=== PATIENT | female | born 1970 | race Caucasian/White ===

== ENCOUNTER 2022-09-14 10:44 | Outpatient (REF) | payer OTHER, SELFPAY ==
[2022-09-14 11:47] LABS: MANUAL DIFF FLAG NO
[2022-09-14 13:25] LABS: Basophils Absolute Auto 0.1 X10*3/uL (0.0-0.2); Basophils Percent Auto 0.9 % (0-2); Eosinophils Percent Auto 0.4 % (0-4); Hematocrit 38.2 % (37.0-47.0); Hemoglobin 12.2 g/dl (12.0-16.0); Imm Gran Abs Auto 0.03 X10*3/uL (0.00-0.03); Imm Gran Pct Auto 0.3 % (0.0-0.4); Lymphocytes Absolute Auto 2.1 X10*3/uL (1.2-4.9); Lymphocytes Percent Auto 21.2 % (20-40); Mean Corpuscular HGB Conc 31.9 g/dl (31.0-35.0); Mean Corpuscular Hemoglobin 28.8 pg (27.0-33.0); Mean Corpuscular Volume 90.1 fL (80.0-98.0); Monocytes Absolute Auto 0.8 X10*3/uL (0.1-1.2); Monocytes Percent Auto 7.7 % (2-11); Neutrophils Absolute Auto 6.9 x10*3/uL (2.0-8.3); Neutrophils Percent Auto 69.5 % (45-73); Platelet Count 272 X10*3/uL (160-400); Red Blood Count 4.24 X10*6/uL (4.20-5.50); Red Cell Distribution Width 13.5 % (11.0-16.0); White Blood Count 9.9 X10*3/uL (4.8-10.8)
[2022-09-14 13:57] LABS: Estimated Average Glucose 114 mg/dL; Hemoglobin A1c % 5.6 %
[2022-09-14 14:20] LABS: Alanine Aminotransferase 18 U/L (0-31); Albumin Level 4.2 g/dL (3.5-5.0); Alkaline Phosphatase 104 U/L (39-117); Anion Gap 12 (12-20); Aspartate Amino Transferase 20 U/L (5-31); Bilirubin Total 0.3 mg/dL (0.0-1.0); Blood Urea Nitrogen 18 mg/dL (9-16); Calcium 10.1 mg/dL (8.4-10.2); Carbon Dioxide 27 mmol/L (22-29); Chloride 103 mmol/L (96-108); Estimated Glomerular Filt Rate > 60; Glucose Random 95 mg/dL (60-115); Potassium 4.3 mmol/L (3.3-5.1); Sodium 138 mmol/L (135-145); Total Protein 7.8 g/dL (6.5-8.0)
== END 2022-09-14 10:45 | disposition home or self-care (01) ==
LOC: HO.LAB 10:44
PROVIDERS: PCP Family Medicine; Visit Provider Surgery
DX: E66.01 Morbid (severe) obesity due to excess calories (principal); Z68.36 Body mass index [BMI] 36.0-36.9, adult; Z98.84 Bariatric surgery status
CPT/HCPCS: 36415; 80053; 83036; 84134; 85025

== ENCOUNTER → 2022-09-28 14:11 | Outpatient (BNVA) | payer OTHER, SELFPAY | PROVIDERS: PCP Family Medicine; Visit Provider Dietitian, Registered | DX: E66.9 Obesity, unspecified (principal); Z68.36 Body mass index [BMI] 36.0-36.9, adult; Z71.3 Dietary counseling and surveillance | CPT/HCPCS: 97802 ==

== ENCOUNTER 2022-10-19 10:24 | Outpatient (REF) | payer OTHER, SELFPAY ==
--- NOTE | ~2022-10-19 | US_ITS ---
EXAMINATION: US COMPLETE ABDOMEN WITH LIVER ELASTOGRAPHY CLINICAL INFORMATION: Obesity COMPARISON: None available. TECHNIQUE: Real-time imaging of the abdominal viscera. Noninvasive ultrasound liver fibrosis assessment is performed using Petra ElastPQ point quantification shear wave elastography (2D-SWE) with a C5-2 MHz transducer. Multiple elastography samples are obtained. FINDINGS: PANCREAS: Normal. ABDOMINAL AORTA: The proximal, middle, and distal aortic segments are normal in caliber. INFERIOR VENA CAVA: Visualized portions are normal. LIVER: Echogenic liver probably representing fatty infiltration. Hypoechoic area in the left lobe measuring 1 cm. Is uncertain whether this represents a liver lesion or area of focal fatty sparing. No other focal lesion or intrahepatic biliary duct dilatation. The right lobe measures 14 cm in length. The left lobe measures 11.6 cm in length. Portal flow is normal/hepatopedal Shear wave liver elastography median stiffness is 1.4 m/s (reference: normal median stiffness is 1.3 m/s or less). IQR/median stiffness to assess sampling precision is 0.13 (reference: good quality data set is IQR/median stiffness of 0.15 or less). GALLBLADDER: Surgically removed COMMON BILE DUCT: Normal in caliber measuring 0.5 cm in diameter. RIGHT KIDNEY: Not well visualized. No renal stone, mass or hydronephrosis. The right kidney measures 8.2 cm in length.. LEFT KIDNEY: Normal. No hydronephrosis. No renal calculi or focal parenchymal lesions. The kidney measures 10 cm in maximum dimension. SPLEEN: Normal. The spleen measures 11 cm in maximum dimension. FREE FLUID: None. US/US abdomen comp w elastography IMPRESSION: 1. Impression: Echogenic liver probably representing fatty infiltration. 1 cm hypoechoic area in the left lobe of the liver , question representing areas of focal fatty sparing. This could be further evaluated with liver MRI if clinically indicated. 2. Liver elastography: Adequate liver sampling. In the absence of other known clinical signs, rules out compensated advanced chronic liver disease. REFERENCE: Society of Radiologists in Ultrasound Liver Stiffness Thresholds (2020): LIVER STIFFNESS THRESHOLDS: *Liver Stiffness equal or less than 1.3 m/s: High probability of being normal. *Liver Stiffness less than 1.7 m/s: In the absence of other known clinical signs, rules out compensated advanced chronic liver disease. *Liver Stiffness 1.7-2.1 m/s: Suggestive of compensated advanced chronic liver disease but need further test for confirmation. *Liver Stiffness over 2.1 m/s: Rules in compensated advanced chronic liver disease. *Liver Stiffness over 2.4 m/s: Suggestive of clinically significant portal hypertension. QUALITY OF DATA SET: *IQR/Median value equal or less than 0.15 implies a quality data set. *IQR/Median value over 0.15 implies a poor quality data set. SIGNIFICANT CHANGE FROM PRIOR EXAM: Significant change if liver stiffness measurement is 10% or greater from prior exam. OTHER CONSIDERATIONS: The stage of liver fibrosis may be overestimated in the setting of acute hepatitis, liver inflammation, elevated liver function tests, hepatic vascular congestion, obstructive cholestasis, non-fasting state, and infiltrative diseases such as amyloidosis and lymphoma. In some patients with NAFLD, the liver stiffness thresholds for compensated advanced chronic liver disease may be lower. In causes other than viral hepatitis and NAFLD, liver stiffness thresholds are not well established.
== END 2022-10-19 10:25 | disposition home or self-care (01) ==
LOC: HO.US 10:24
PROVIDERS: Visit Provider Surgery
DX: E23.6 Other disorders of pituitary gland (principal); Z98.84 Bariatric surgery status
CPT/HCPCS: 76705; 76981

== ENCOUNTER 2022-10-25 10:34 | Outpatient (AMB) | payer OTHER, SELFPAY ==
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
[2022-10-25 11:13] VITALS: BP 112/71; PULSE 77; BMI 37.4
== END 2022-10-25 12:02 | disposition home or self-care (01) ==
PROVIDERS: PCP Family Medicine; Visit Provider Surgery
DX: E66.01 Morbid (severe) obesity due to excess calories (principal); Z98.84 Bariatric surgery status; Z68.36 Body mass index [BMI] 36.0-36.9, adult; K76.0 Fatty (change of) liver, not elsewhere classified; R93.5 Abnormal findings on diagnostic imaging of other abdominal regions, including retroperitoneum
CPT/HCPCS: 99214

== ENCOUNTER → 2022-10-25 10:34 | Outpatient (BNVA) | payer OTHER, SELFPAY | PROVIDERS: PCP Family Medicine; Visit Provider Surgery | DX: Z68.36 Body mass index [BMI] 36.0-36.9, adult (principal); E66.01 Morbid (severe) obesity due to excess calories; Z98.84 Bariatric surgery status; E23.6 Other disorders of pituitary gland ==

== ENCOUNTER 2022-11-01 15:58 | Outpatient (REF) | payer OTHER, SELFPAY ==
--- NOTE | ~2022-11-01 | MR_ITS ---
EXAMINATION: MRI ABDOMEN WITH AND WITHOUT CONTRAST CLINICAL INFORMATION: R16.0 - Hepatomegaly, not elsewhere classified COMPARISON: 10/19/2022 TECHNIQUE: Multiple routine MRI sequences through the abdomen were obtained on a high-field 1.5Tesla MRI. Pre-and postcontrast images with 10 mL of Gadavist intravenous contrast were obtained. This included a dynamic contrast-enhanced technique. FINDINGS: Lung bases: The visualized lung bases are unremarkable. Liver: There is mild signal loss and out of phase imaging consistent with mild diffuse fatty infiltration. On the prior ultrasound there is a subtle hypoechoic region seen along the posterior left lobe the liver I do not appreciate any suspicious lesion or enhancement in this location. There is a focal wedge-shaped region of focal fatty sparing along the posterior aspect of the left lobe the liver best appreciated on out of phase series 6 image 13/34. This area of focal fatty sparing likely explains the appearance on the recent ultrasound. No suspicious lesions noted. Gallbladder: Surgically absent Pancreas: Pancreas is homogeneous in signal. No pancreatic ductal dilatation or obstruction. No peripancreatic inflammatory changes or fluid. Spleen: Unremarkable Adrenals: Unremarkable Kidneys: Kidneys are normal in size, shape, and signal. No suspicious renal mass lesion seen. No hydronephrosis or perinephric edema. Other: Lap band noted MR/MR abdomen wo/w con IMPRESSION: There is mild diffuse fatty infiltration of the liver. There is a focal wedge-shaped region of focal fatty sparing along the posterior aspect of the left lobe the liver which likely corresponds to the subtle abnormality seen on recent ultrasound. I do not appreciate any suspicious hepatic lesions.
== END 2022-11-01 15:59 | disposition home or self-care (01) ==
LOC: HO.MRI 15:58
PROVIDERS: Visit Provider Surgery
DX: R16.0 Hepatomegaly, not elsewhere classified (principal)
CPT/HCPCS: 74183; A9585

== ENCOUNTER 2022-11-07 10:30 | Outpatient (AMB) | payer OTHER, SELFPAY ==
[2022-11-07 10:32] VITALS: BP 126/87; TEMP 36.6; O2SAT 97; BMI 36.9
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
== END 2022-11-07 11:27 | disposition home or self-care (01) ==
PROVIDERS: PCP Family Medicine; Visit Provider Surgery
DX: R93.5 Abnormal findings on diagnostic imaging of other abdominal regions, including retroperitoneum (principal); K76.0 Fatty (change of) liver, not elsewhere classified; Z68.36 Body mass index [BMI] 36.0-36.9, adult; E23.6 Other disorders of pituitary gland; E66.01 Morbid (severe) obesity due to excess calories; Z98.84 Bariatric surgery status
CPT/HCPCS: 99214

== ENCOUNTER → 2022-11-07 10:30 | Outpatient (BNVA) | payer OTHER, SELFPAY | PROVIDERS: PCP Family Medicine; Visit Provider Surgery | DX: E66.01 Morbid (severe) obesity due to excess calories (principal); R13.10 Dysphagia, unspecified; R93.5 Abnormal findings on diagnostic imaging of other abdominal regions, including retroperitoneum; K76.0 Fatty (change of) liver, not elsewhere classified; R00.0 Tachycardia, unspecified; Z68.36 Body mass index [BMI] 36.0-36.9, adult; Z98.84 Bariatric surgery status | CPT/HCPCS: 99212 ==

== ENCOUNTER 2022-12-02 10:46 | Outpatient (AMB) | payer OTHER, SELFPAY ==
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
[2022-12-02 11:00] VITALS: BP 125/60; PULSE 78; TEMP 36.4; O2SAT 97; BMI 35.4
== END 2022-12-02 11:56 | disposition home or self-care (01) ==
PROVIDERS: PCP Family Medicine; Visit Provider Surgery
DX: K76.0 Fatty (change of) liver, not elsewhere classified (principal); R93.5 Abnormal findings on diagnostic imaging of other abdominal regions, including retroperitoneum; E66.01 Morbid (severe) obesity due to excess calories; Z68.36 Body mass index [BMI] 36.0-36.9, adult; Z98.84 Bariatric surgery status
CPT/HCPCS: 99214

== ENCOUNTER → 2022-12-02 10:46 | Outpatient (BNVA) | payer OTHER, SELFPAY | PROVIDERS: PCP Family Medicine; Visit Provider Surgery | DX: E66.01 Morbid (severe) obesity due to excess calories (principal); Z68.36 Body mass index [BMI] 36.0-36.9, adult; E23.6 Other disorders of pituitary gland; K76.0 Fatty (change of) liver, not elsewhere classified; R93.5 Abnormal findings on diagnostic imaging of other abdominal regions, including retroperitoneum; Z98.84 Bariatric surgery status | CPT/HCPCS: 99212 ==

== ENCOUNTER 2022-12-20 11:04 | Outpatient (AMB) | payer OTHER, SELFPAY ==
[2022-12-20 11:13] VITALS: BP 134/69; PULSE 80; TEMP 36.1; O2SAT 99; BMI 32.7
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
== END 2022-12-20 13:05 | disposition home or self-care (01) ==
PROVIDERS: PCP Family Medicine; Visit Provider Surgery
DX: R13.10 Dysphagia, unspecified (principal); Z98.84 Bariatric surgery status; R93.5 Abnormal findings on diagnostic imaging of other abdominal regions, including retroperitoneum; K76.0 Fatty (change of) liver, not elsewhere classified; E23.6 Other disorders of pituitary gland; E66.01 Morbid (severe) obesity due to excess calories; Z68.36 Body mass index [BMI] 36.0-36.9, adult
CPT/HCPCS: 99214

== ENCOUNTER → 2022-12-20 11:04 | Outpatient (BNVA) | payer OTHER, SELFPAY | PROVIDERS: PCP Family Medicine; Visit Provider Surgery | DX: R13.10 Dysphagia, unspecified (principal); E23.6 Other disorders of pituitary gland; K76.0 Fatty (change of) liver, not elsewhere classified; R93.5 Abnormal findings on diagnostic imaging of other abdominal regions, including retroperitoneum; E66.01 Morbid (severe) obesity due to excess calories; Z98.84 Bariatric surgery status; Z68.32 Body mass index [BMI] 32.0-32.9, adult | CPT/HCPCS: 99212 ==

== ENCOUNTER 2023-02-10 10:16 | Outpatient (REF) | payer OTHER, SELFPAY ==
[2023-02-10 11:32] LABS: MANUAL DIFF FLAG NO
[2023-02-10 11:54] LABS: Basophils Absolute Auto 0.1 X10*3/uL (0.0-0.2); Basophils Percent Auto 1.1 % (0-2); Eosinophils Absolute Auto 0.2 X10*3/uL (0.0-0.4); Eosinophils Percent Auto 2.4 % (0-4); Hematocrit 38.4 % (37.0-47.0); Hemoglobin 12.3 g/dl (12.0-16.0); Imm Gran Abs Auto 0.01 X10*3/uL (0.00-0.03); Imm Gran Pct Auto 0.1 % (0.0-0.4); Lymphocytes Absolute Auto 1.4 X10*3/uL (1.2-4.9); Lymphocytes Percent Auto 18.9 % (20-40); Mean Corpuscular Hemoglobin 27.9 pg (27.0-33.0); Mean Corpuscular Volume 87.1 fL (80.0-98.0); Mean Platelet Volume 11.7 fL (9.4-12.3); Monocytes Absolute Auto 0.6 X10*3/uL (0.1-1.2); Monocytes Percent Auto 7.5 % (2-11); Neutrophils Absolute Auto 5.2 x10*3/uL (2.0-8.3); Platelet Count 248 X10*3/uL (160-400); Red Blood Count 4.41 X10*6/uL (4.20-5.50); Red Cell Distribution Width 14.9 % (11.0-16.0); White Blood Count 7.4 X10*3/uL (4.8-10.8)
[2023-02-10 12:39] LABS: Alanine Aminotransferase 39 U/L (0-31); Albumin Level 4.3 g/dL (3.5-5.0); Alkaline Phosphatase 123 U/L (39-117); Anion Gap 12 (12-20); Aspartate Amino Transferase 33 U/L (5-31); Bilirubin Total 0.3 mg/dL (0.0-1.0); Blood Urea Nitrogen 18 mg/dL (9-16); Calcium 9.7 mg/dL (8.4-10.2); Carbon Dioxide 28 mmol/L (22-29); Chloride 102 mmol/L (96-108); Estimated Glomerular Filt Rate > 60; Glucose Random 102 mg/dL (60-115); Potassium 4.4 mmol/L (3.3-5.1); Sodium 138 mmol/L (135-145); Total Protein 7.9 g/dL (6.5-8.0)
== END 2023-02-10 10:17 | disposition home or self-care (01) ==
LOC: HO.LAB 10:16
PROVIDERS: PCP Family Medicine; Visit Provider Surgery
DX: E66.01 Morbid (severe) obesity due to excess calories (principal); Z68.36 Body mass index [BMI] 36.0-36.9, adult; K76.0 Fatty (change of) liver, not elsewhere classified; R13.10 Dysphagia, unspecified; Z98.84 Bariatric surgery status
CPT/HCPCS: 36415; 80053; 84134; 85025; 99212

== ENCOUNTER 2023-02-10 10:16 | Outpatient (AMB) | payer OTHER, SELFPAY ==
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
[2023-02-10 10:28] VITALS: BP 120/67; PULSE 77; TEMP 36.6; O2SAT 100; BMI 33.2
== END 2023-02-10 11:20 | disposition home or self-care (01) ==
PROVIDERS: PCP Family Medicine; Visit Provider Surgery
DX: Z98.84 Bariatric surgery status (principal); R13.10 Dysphagia, unspecified; E66.01 Morbid (severe) obesity due to excess calories; Z68.36 Body mass index [BMI] 36.0-36.9, adult; E23.6 Other disorders of pituitary gland; K76.0 Fatty (change of) liver, not elsewhere classified; R93.5 Abnormal findings on diagnostic imaging of other abdominal regions, including retroperitoneum
CPT/HCPCS: 99214

== ENCOUNTER 2023-02-22 08:52 | Inpatient (IN) | payer OTHER, SELFPAY ==
[2023-02-08 10:32] VITALS: BMI 33.7
--- NOTE | 2023-02-21 09:02 | P.CONAN_ITS ---
Documented by User: Sisi Sharpe NP 02/21/23 09:04 HPI - Anesthesia Eval Consult details Narrative: 52yo F for Lap Band Removal Laparosopic PMFSH Active Problems Active Problems: All Active Problems (Updated 02/08/23 @ 10:41 by Ginny Chapin RN) Dysphagia (Acute) Abnormal abdominal ultrasound (Acute) NAFLD (nonalcoholic fatty liver disease) (Acute) Empty sella (Acute) BMI 36.0-36.9,adult (Acute) Morbid (severe) obesity due to excess calories (Acute) H/O laparoscopic adjustable gastric banding (Acute) Past Medical History Medical History Cyst (solitary) of breast Hiatal hernia Anxiety Empty sella syndrome Asthma History of headache Tachycardia Family History Family History Paternal Grandfather Lung cancer Maternal Grandmother Liver cancer Pancreatic cancer Colon cancer Surgical History Surgical History History of kidney surgery Hx of cholecystectomy Hx of breast reduction, elective Hx of tonsillectomy Hx of adenoidectomy H/O laparoscopic adjustable gastric banding Social History Social History Are you a primary post anesthesia care unit nurse to a significant other at home: Yes Do you presently have visiting nurse or other home services: No Alcohol intake: never Patient Tobacco Use Status: Never used Tobacco Use of substances other than those prescribed or required for medical reasons: No Have you been hit, kicked, punched, or otherwise hurt by someone within the past year? If so, by whom?: No Advance Directives: No Advance Directives Information Provided: Yes Advance Directives on File: No Recently lost weight without trying: No Nutrition Risks: No Nutritional Risk Patient : No : No Poor oral hygiene: No Meds Allergies Allergy/AdvReac Type Severity Reaction Status Date / Time acetaminophen [From Vicodin] Allergy Mild RASH Verified 02/22/23 09:37 adhesive tape Allergy Mild Rash Verified 02/22/23 09:37 hydrocodone [From Vicodin] Allergy Mild RASH Verified 02/22/23 09:37 oxycodone [From Percocet] Allergy Mild RASH Verified 02/22/23 09:37 propoxyphene Allergy Mild RASH Verified 02/22/23 09:37 [From CadenAbi] Home Medications Medication Instructions Recorded Confirmed Last Taken Type amitriptyline 150 mg tablet 150 mg PO BEDTIME 09/14/22 02/22/23 02/21/23 History cholecalciferol (vitamin D3) 25 25 mcg PO DAILY 09/14/22 02/22/23 02/21/23 History mcg (1,000 unit) capsule oajvsid-myyqqoevih-HTB-caffeine 30 1 cap PO Q6H PRN Headache 09/14/22 02/22/23 Unknown History mg-50 mg-325 mg-40 mg capsule (Butalbital Compound with Codeine) omeprazole 20 mg tablet,delayed 20 mg PO DAILY 09/14/22 02/08/23 02/22/23 History release rimegepant 75 mg disintegrating 75 mg PO Q OTHER DAY PRN Headache 09/14/22 02/08/23 Unknown History tablet sertraline 100 mg tablet 150 mg PO DAILY 09/14/22 02/22/23 02/22/23 History albuterol sulfate 90 mcg/actuation 2 puff inhalation Q6H PRN Wheezing 02/08/23 02/22/23 Unknown History aerosol inhaler multivitamin 1 tab PO DAILY 02/08/23 02/22/23 02/21/23 History propranolol 80 mg tablet 80 mg PO BID 02/08/23 02/22/23 02/22/23 History Exam Height,Weight and Vital Signs: Height 5 ft 3 in Weight 86.183 kg Pertinent Lab Results Pertinent Lab Results: Laboratory Tests 02/10/23 11:23 Blood Type B Negative Antibody Screen NEGATIVE Laboratory Tests 02/10/23 11:30 WBC 7.4 Hgb 12.3 Hct 38.4 Plt Count 248 Sodium 138 Potassium 4.4 Chloride 102 Carbon Dioxide 28 BUN 18 H Creatinine 0.67 Assessment and Plan Assessment Anesthesia Assessment: Chart Reviewed Documented by User: Mickey Dean MD 02/22/23 13:57 [facility] Past Medical History Medical History Cyst (solitary) of breast Hiatal hernia Anxiety Empty sella syndrome Asthma History of headache Tachycardia Family History Family History Paternal Grandfather Lung cancer Maternal Grandmother Liver cancer Pancreatic cancer Colon cancer Family history of problems with anesthesia: No Surgical History Surgical History History of kidney surgery Hx of cholecystectomy Hx of breast reduction, elective Hx of tonsillectomy Hx of adenoidectomy H/O laparoscopic adjustable gastric banding History of Problems with Anesthesia: No Social History Social History Are you a primary post anesthesia care unit nurse to a significant other at home: Yes Do you presently have visiting nurse or other home services: No Alcohol intake: never Patient Tobacco Use Status: Never used Tobacco Use of substances other than those prescribed or required for medical reasons: No Have you been hit, kicked, punched, or otherwise hurt by someone within the past year? If so, by whom?: No Advance Directives: No Advance Directives Information Provided: Yes Advance Directives on File: No Recently lost weight without trying: No Nutrition Risks: No Nutritional Risk Patient : No : No Poor oral hygiene: No Meds Allergies Allergy/AdvReac Type Severity Reaction Status Date / Time acetaminophen [From Vicodin] Allergy Mild RASH Verified 02/22/23 09:37 adhesive tape Allergy Mild Rash Verified 02/22/23 09:37 hydrocodone [From Vicodin] Allergy Mild RASH Verified 02/22/23 09:37 oxycodone [From Percocet] Allergy Mild RASH Verified 02/22/23 09:37 propoxyphene Allergy Mild RASH Verified 02/22/23 09:37 [From Darvocet-N] Home Medications Medication Instructions Recorded Confirmed Last Taken Type amitriptyline 150 mg tablet 150 mg PO BEDTIME 09/14/22 02/22/23 02/21/23 History cholecalciferol (vitamin D3) 25 25 mcg PO DAILY 09/14/22 02/22/23 02/21/23 History mcg (1,000 unit) capsule gogudbv-wjtmndeqhc-FJS-caffeine 30 1 cap PO Q6H PRN Headache 09/14/22 02/22/23 Unknown History mg-50 mg-325 mg-40 mg capsule (Butalbital Compound with Codeine) omeprazole 20 mg tablet,delayed 20 mg PO DAILY 09/14/22 02/08/23 02/22/23 History release rimegepant 75 mg disintegrating 75 mg PO Q OTHER DAY PRN Headache 09/14/22 02/08/23 Unknown History tablet sertraline 100 mg tablet 150 mg PO DAILY 09/14/22 02/22/23 02/22/23 History albuterol sulfate 90 mcg/actuation 2 puff inhalation Q6H PRN Wheezing 02/08/23 02/22/23 Unknown History aerosol inhaler multivitamin 1 tab PO DAILY 02/08/23 02/22/23 02/21/23 History propranolol 80 mg tablet 80 mg PO BID 02/08/23 02/22/23 02/22/23 History Exam Airway Mallampati Class: III TM Dist: >3cm Neck ROM: Full Loose/Missing/Broken Teeth: No Heart: [id number] Lungs: cta b/l Assessment and Plan Assessment Anesthesia Assessment: Anesthesia Plan Discussed Final Anesthetic Review Family History of Problems with Anesthesia: No History of Problems with Anesthesia: No NPO: Yes ASA Class: III Final Preanesthetic Review: No Changes in Pt Med Stat, Meds/Allgs Chart Reviewed, Consent Obtained/Reviewed and Anes Risks/Benef Reviewed Patient Risk: Intermediate Procedure Risk: Intermediate Assessment/Block/Sedation in SS: Assess/Block/Sedation-SS Anesthetic Plan Anesthetic Plan: GA and Agree w/ Assess. and Plan Disposition: Standard PACU
--- NOTE | 2023-02-21 14:30 | MHC.SHP ---
Pre-Procedural Eval Section A Date of Service: 02/21/23 The patient is an INPATIENT: Yes The History & Physical has been completed within 30 days and I have reviewed it.: Yes Section B Chief Complaint: Dysphagia, unspecified Allergies: Allergies Allergy/AdvReac Type Severity Reaction Status Date / Time acetaminophen [From Vicodin] Allergy Mild RASH Verified 02/10/23 10:30 adhesive tape Allergy Mild Rash Verified 02/10/23 10:30 hydrocodone [From Vicodin] Allergy Mild RASH Verified 02/10/23 10:30 oxycodone [From Percocet] Allergy Mild RASH Verified 02/10/23 10:30 propoxyphene Allergy Mild RASH Verified 02/10/23 10:30 [From Darvocet-N] Plan I have reviewed the history and physical and performed a pertinent physical examination on my patient. No changes have occurred unless specified. Time Spent With Patient Time: Total time managing care of this patient today ____ minutes.
[2023-02-22] VITALS (11 sets, daily range): BP systolic 98–137; BP diastolic 46–71; PULSE 72–83; RESP 10–18; TEMP 36.2–37.1; O2SAT 98–100; BMI 33.8
--- NOTE | 2023-02-22 06:58 | P.OP_ITS ---
Operative Note Operative Note Date of Service: 02/22/23 Narrative: Preop diagnosis: [Failed gastric band causing symptomatic dysphagia] Postop diagnosis: [same, unknown gastroesophogeal mesh left in situ] Procedure: [Laparoscopic removal of gastric band including port, laparoscopic lysis of adhesions for 35 minutes, esophagogastroscopy intraoperatively] Surgeon: Moe Mahmood MD, FACS, FASMBS Assist: [Dominic Whitman PA-C] Anesthesia: [GET, local: Marcaine 0.25% with epi] Estimated blood loss: [5cc] Specimen: [Explanted gastric band for gross only] Intraoperative findings: [Significant intra-abdominal lysis of adhesions from the omentum to the anterior abdominal wall, stomach to liver and liver to the anterior abdominal wall requiring lysis as a separate procedure for 35 minutes to begin band removal was encountered; following removal of the gastric band, a densely adherent unknown mesh at the GE junction was noted and impossible to remove without resection of the adherent structures; intraoperative upper endoscopy showed narrowed GE junction and on retroflexion and insufflation, no leaking from the fundus or esophagus was appreciated intraoperatively] Indications: [The pt is a 52y woman with a h/o obesity with a BMI of 36.6/206.8 lbs & migraines who underwent laparoscopic gastric band placement 2009 in [place], [place] with hiatal hernia repair. She reported 68 lb of weight loss and then gradual regain of weight and is having issues with dysphagia, consequently, she is interested in band removal. She is not interested in any surgical weight loss and notes that she would like the band removed due to progressive dysphagia. She also has vague abdominal complaints and constipation that she attributes to the band, but we discussed candidly that if she has irritable bowel syndrome or other functional GI disorders, some of her symptoms may persist to need investigation by house cleaner supervisor. The option of having this done preoperatively was discussed, but the patient was having enough dysphagia that she just wanted to proceed with band removal. he patient would like to proceed with a laparoscopic, possible open gastric band removal, intraoperative upper endoscopy. We again reviewed the inherent risks of bleeding and liver injury, need for open surgery, infection, esophagogastric injury or other complication that could require another procedure, the unlikely but possible issue of blood transfusion in the related complications, risk of weight regain, risk of ongoing GI complaints or esophageal complaints that may require evaluation by a house cleaner supervisor since they are not related to her band, risk of incisional hernia, the risk of recurrent hiatal hernia, risk of DVT that could cause a fatal PE and the importance of hydration to avoid dehydration that could contribute to this complication was discussed; trouble restrictions were reviewed; the patient seemed understand the option of a 2nd opinion closer to her home and the option of leaving the band and wants to proceed with removal given her ongoing dysphagia. ] Procedure: [The patient was identified in the preoperative holding area by myself and again in the operating suite 6 by myself and the OR team. Patient was placed supine on the operating table. Safety straps were utilized and a footboard utilized. The patient was induced in general endotracheal anesthesia administered with excellent effect. An appropriate time-out was performed. The patient's abdomen was then widely prepped and draped in the usual manner for surgery using chlorprep. Ancef, 2gm IV was administered on-call. She voided her bladder biofuels operations manager. SCDs were in place. After infiltrating preemptive local in the skin and subcutaneous tissues in the left upper quadrant, a stab incision was made sharply in the left subcostal abdomen and the Veress needle inserted without incident. An appropriate drop test was performed then a pneumoperitoneum of 15 mmHg was obtained using carbon dioxide. Opening pressures were 8 mmHg. Next, a 5 mm 0 degree scope over a 5 mm Optiview trocar was used to access the abdomen and after entering the abdomen, it became apparent that there were extensive adhesions from the omentum to the anterior abdominal wall, falciform ligament and right side of the ab domen to the peritoneal surface. These adhesions interfered with placement of trocars and, under direct laparoscopic vision using preemptive analgesia, additional 5 mm left-sided abdominal trocars were placed to allow dissection and lysis of adhesions for 35 minutes. Once the adhesions were lysed and allowed placement of the additional 5 mm trocar, the liver retractor was placed carefully and additional lysis of adhesions from the stomach and lesser curve to the liver was performed. Dissection was begun along the anterior liver to allow positioning of the liver retractor. The lesser curve of the stomach had dense adhesions from band to the liver which required additional lysis. The gastric band port filled tube was followed to the band and careful dissection performed. The securing clasp was identified, cut in 1 location to open it and released from around the upper stomach. The filling tube was also cut cleanly and the band removed through the 12 mm epigastric trocar in its entirety. At this point, I broke scrub perform an on-table upper endoscopy to assess the esophagus and stomach. The scope readily passed through the GE junction however it was noticeably tighter than t he remaining esophagus. On retroflexion, some retained vegetable matter was noted in the fundus and left in Situ. The patient was returned to neutral position and the Olympus 160 gastroscope was advanced per os taking care to preserve the endotracheal tube. The esophagus was intubated without incident. Minimal air was insufflated and the scope advanced into the newly formed sleeve. The staple line was inspected for hemostasis and the morphology of the sleeve appeared straight with a uniform diameter. Intraoperatively, there was no evidence of leak seen during laparoscopy as air was insufflated via endoscope. The scope was then used to aspirate the air from the sleeve withdrawn and removed. I then rescrubbed to return to the operative field and again inspected the field for hemostasis which was good. However given the findings of noticeable GE junction stenosis on endoscopy, additional dissection was carefully performed which demonstrated an unknown mesh around the GE junction which was densely adherent and not possible to safely resect. This mesh was left in place. After final assessment for hemostasis, the patient was returned to neutral position and local was infiltrated around the port and a transverse incision made. Hemostasis in the subcutaneous was obtained with electrocautery. Dissection was carried down to the port which was carefully preserved and circumferentially dissected removing it from the anterior abdominal wall fascia. Under direct laparoscopic vision then the port and its fill tube was removed and the entire tube withdrawn and submitted with the complete band for gross pathology. After final inspection for hemostasis, the abdomen was deflated and the subcutaneous tissues of the right abdominal port site was closed. The fascia of the 12 mm midline was closed using an 0 Polysorb figure of 8. The abdomen was then deflated and all trocars removed. The suture was then tied and the skin closed with 4-0 Monocryl subcuticular sutures. The abdomen was then washed and dried, benzoin and Steri-Strips applied followed by Tegaderms. All sponge needle instrument counts were correct x2 At the patient's request, I contacted her daughter, Reji at [phone] to apprise her of the operation, the unexpected mesh at the GE junction and plan for discharge, tentatively tomorrow. Patient's daughter's questions seemed to be satisfactorily answered.
--- NOTE | 2023-02-22 09:08 | PHA.MEDREC ---
Pharmacy Consult ? Medication Reconciliation Pharmacy has completed the medication reconciliation. COMPLETED BY PHARMACY REVIEWED BY CECIL AYALA
[2023-02-22] MEDS: Lactated Ringers 1,000 ML 150 ML IVCONT ×3 (09:49→22:11)
[2023-02-22] MEDS: Aprepitant 32 MG/4.4 ML VIAL IVPUSH (09:49)
[2023-02-22 14:10] LABS: Hematocrit 35.5 % (37.0-47.0); Hemoglobin 11.2 g/dl (12.0-16.0)
--- NOTE | 2023-02-22 14:33 | P.PNGS_ITS ---
Subjective Subjective Date of Service: 02/22/23 Physical Exam 2 Vital Signs: Vital Signs: Last Vital Signs Temp 98 F 02/22/23 13:45 Pulse 80 02/22/23 14:30 Resp 14 02/22/23 14:30 BP 116/68 02/22/23 14:30 Pulse Ox 99 02/22/23 14:30 O2 Del Method Nasal Cannula wit h Capnography 02/22/23 14:30 O2 Flow Rate 2 02/22/23 14:30 BMI result Body Mass Index 33.8 Objective Data Active Medications Albuterol Sulfate (Albuterol Sulfate (0.083%) 2.5 Mg/3 Ml Vial.Neb) 2.5 mg INHALE ONCE PRN PRN Reason: Shortness of Breath/Wheezing Famotidine (Famotidine/Pf 20 Mg/2 Ml Vial) 20 mg IVPUSH BID CAROLEE Fentanyl (Fentanyl Citrate/Pf 100 Mcg/2 Ml Vial) 50 mcg IVPUSH Q5M PRN; Protocol PRN Reason: Pain, Severe (Pain Scale 7-10) Hydromorphone HCl (Hydromorphone Hcl 0.5 Mg/0.5 Ml Syringe) 0.25 mg IVPUSH Q2H PRN; Protocol PRN Reason: Pain, Moderate(Pain Scale 4-6) Hydromorphone HCl (Hydromorphone Hcl 0.5 Mg/0.5 Ml Syringe) 0.5 mg IVPUSH Q5M PRN; Protocol PRN Reason: Pain, Severe (Pain Scale 7-10) Lactated Ringer's (Lr) 1,000 mls @ 150 mls/hr IVCONT .Q6H40M [facility] Last Admin: 02/22/23 09:49 Dose: 150 mls/hr Documented By: LITZY Acetaminophen ([facility]) 1,000 mg in 100 mls @ 400 mls/hr IV Q6H [facility] Ondansetron HCl (Ondansetron Hcl 4 Mg/2 Ml Vial) 4 mg IVPUSH Q8H PRN PRN Reason: Nausea Ondansetron HCl (Ondansetron Hcl 4 Mg/2 Ml Vial) 4 mg IVPUSH ONCE PRN PRN Reason: Nausea and Vomiting Oxycodone HCl (Oxycodone Hcl Immed Release 5 Mg Tablet) 5 mg PO Q4H PRN PRN Reason: Pain, Moderate(Pain Scale 4-6) Sodium Chloride (0.9 % Sodium Chloride Flush 3 Ml Syringe) 3 ml IVFLUSH QSHIFT [facility] Labs 02/22/23 14:05 02/22/23 14:05 Procedures Date of Service Date of Service: 02/22/23 Progress Note: A&P Time Spent With Patient Time: Total time managing care of this patient today ____ minutes.
[2023-02-22 14:35] LABS: Anion Gap 11 (12-20); Blood Urea Nitrogen 12 mg/dL (9-16); Calcium 9.3 mg/dL (8.4-10.2); Carbon Dioxide 27 mmol/L (22-29); Chloride 103 mmol/L (96-108); Creatinine Clr Calc Pharmacy 107.9; Estimated Glomerular Filt Rate > 60; Glucose Random 123 mg/dL (60-115); Potassium 4.4 mmol/L (3.3-5.1); Sodium 137 mmol/L (135-145)
[2023-02-22] MEDS: Acetaminophen 1,000 MG/100 ML PIGGYBACK 400 MG IV ×2 (15:37→20:10)
--- NOTE | 2023-02-22 15:38 | PM.PNGS ---
Subjective Subjective Date of Service: 02/22/23 Interval history: The patient reports a sore throat and minimal pain. We discussed her reported rash from Tylenol and she noted that she experienced a rash from Darvocet in the past and since that time, everything that has been a narcotic mixed with Tylenol who is reported as a rash but the patient takes Tylenol without any difficulty. She denies any difficulty breathing, shortness of breath. She has had a little water and denies any nausea or vomiting. Physical Exam Vital Signs: Vital Signs: Last Vital Signs Temp 97.2 F 02/22/23 15:00 Pulse 79 02/22/23 15:00 Resp 15 02/22/23 15:00 BP 122/60 02/22/23 15:00 Pulse Ox 100 02/22/23 15:00 O2 Del Method Nasal Cannula wit h Capnography 02/22/23 15:00 O2 Flow Rate 2 02/22/23 15:00 BMI result Body Mass Index 33.8 On exam, she is nontoxic She is in no acute respiratory distress Appropriate incisional tenderness is noted with her binder in place Objective Data Active Medications Albuterol Sulfate (Albuterol Sulfate (0.083%) 2.5 Mg/3 Ml Vial.Neb) 2.5 mg INHALE ONCE PRN PRN Reason: Shortness of Breath/Wheezing Albuterol Sulfate (Albuterol Sulfate 90 Mcg 8 Gm Inhaler) 2 puff INHALE Q6H PRN PRN Reason: Wheezing Amitriptyline HCl (Amitriptyline Hcl 50 Mg Tablet) 150 mg PO BEDTIME CAROLEE Famotidine (Famotidine/Pf 20 Mg/2 Ml Vial) 20 mg IVPUSH BID CAROLEE Fentanyl (Fentanyl Citrate/Pf 100 Mcg/2 Ml Vial) 50 mcg IVPUSH Q5M PRN; Protocol PRN Reason: Pain, Severe (Pain Scale 7-10) Hydromorphone HCl (Hydromorphone Hcl 0.5 Mg/0.5 Ml Syringe) 0.25 mg IVPUSH Q2H PRN; Protocol PRN Reason: Pain, Moderate(Pain Scale 4-6) Hydromorphone HCl (Hydromorphone Hcl 0.5 Mg/0.5 Ml Syringe) 0.5 mg IVPUSH Q5M PRN; Protocol PRN Reason: Pain, Severe (Pain Scale 7-10) Lactated Ringer's (Lr) 1,000 mls @ 150 mls/hr IVCONT .Q6H40M [facility] Last Admin: 02/22/23 09:49 Dose: 150 mls/hr Documented By: LITZY Acetaminophen ([facility]) 1,000 mg in 100 mls @ 400 mls/hr IV Q6H [facility] Omeprazole (Omeprazole 20 Mg Capsule.Dr) 20 mg PO DAILY [facility] Ondansetron HCl (Ondansetron Hcl 4 Mg/2 Ml Vial) 4 mg IVPUSH Q8H PRN PRN Reason: Nausea Ondansetron HCl (Ondansetron Hcl 4 Mg/2 Ml Vial) 4 mg IVPUSH ONCE PRN PRN Reason: Nausea and Vomiting Ondansetron HCl (Ondansetron Odt 4 Mg Tab.Rapdis) 4 mg TRANSLINGU Q6H PRN PRN Reason: nausea and vomiting Oxycodone HCl (Oxycodone Hcl Immed Release 5 Mg Tablet) 5 mg PO Q4H PRN PRN Reason: Pain, Moderate(Pain Scale 4-6) Propranolol HCl (Propranolol Hcl 40 Mg Tablet) 80 mg PO BID [facility]; Protocol Sodium Chloride (0.9 % Sodium Chloride Flush 3 Ml Syringe) 3 ml IVFLUSH QSHIFT [facility] Sucralfate (Sucralfate Oral Suspension 1 Gm/10 Ml Oral.Susp) 1 gm PO BID [facility] Labs 02/22/23 14:05 02/22/23 14:05 Labs: Laboratory Results - last 24 hr 02/22/23 14:05 Anion Gap 11 L Estim Creat Clear Calc 107.9 Estimated GFR > 60 Random Glucose 123 H Calcium 9.3 Procedures Date of Service Date of Service: 02/22/23 Progress Note: A&P Assessment and plan (1) H/O laparoscopic adjustable gastric banding: Status: Acute (2) History of removal of laparoscopic gastric banding device: Status: Acute (3) NAFLD (nonalcoholic fatty liver disease): Status: Acute (4) Empty sella: Status: Acute (5) Morbid (severe) obesity due to excess calories: Status: Acute Plan Patient is cleared to you would be given Tylenol as she notes that she takes at home without issue. As noted, the Tylenol rash was related to Darvocet years ago when the product was made. Continue sips of water; out of bed and ambulate 1 more awake. See orders. Trend labs. Intraoperative findings including the unexpected mesh densely adherent to her GE junction was discussed with the patient. She tried to obtain operative reports but was advised that they only had records from the previous 8 years due to Federal requirements. Patient does not recall being told that a mesh was used for her hiatal hernia repair. Time Spent With Patient Time: Total time managing care of this patient today ____ minutes. Quality Stroke Does the patient have a stroke diagnosis?: No VTE Prior VTE?: No VTE Risk Level:: Surgical - moderate VTE Device Contraindication: N/A - Device Ordered VTE Drug Contraindication: Treatment Not Indicated
[2023-02-22] MEDS: Famotidine/PF 20 MG/2 ML VIAL IVPUSH (20:10)
[2023-02-22] MEDS: Sucralfate Oral Suspension 1 GM/10 ML ORAL.SUSP PO (20:10)
[2023-02-22] MEDS: Amitriptyline HCl 50 MG TABLET 150 MG PO (20:10)
[2023-02-22] MEDS: 0.9 % Sodium Chloride Flush 3 ML SYRINGE IVFLUSH (20:11)
[2023-02-23] MEDS: Acetaminophen 1,000 MG/100 ML PIGGYBACK 400 MG IV ×2 (01:51→07:47)
[2023-02-23 03:36] VITALS: BP 109/57; PULSE 82; RESP 16; TEMP 36.2; O2SAT 99
[2023-02-23] MEDS: Lactated Ringers 1,000 ML 150 ML IVCONT (04:32)
[2023-02-23 06:30] LABS: MANUAL DIFF FLAG NO
[2023-02-23 06:40] LABS: Basophils Percent Auto 0.3 % (0-2); Eosinophils Percent Auto 0.3 % (0-4); Hematocrit 31.8 % (37.0-47.0); Hemoglobin 10.2 g/dl (12.0-16.0); Imm Gran Abs Auto 0.03 X10*3/uL (0.00-0.03); Imm Gran Pct Auto 0.3 % (0.0-0.4); Lymphocytes Absolute Auto 1.7 X10*3/uL (1.2-4.9); Lymphocytes Percent Auto 15.7 % (20-40); Mean Corpuscular HGB Conc 32.1 g/dl (31.0-35.0); Mean Corpuscular Hemoglobin 27.3 pg (27.0-33.0); Mean Platelet Volume 11.3 fL (9.4-12.3); Monocytes Absolute Auto 0.8 X10*3/uL (0.1-1.2); Neutrophils Absolute Auto 8.5 x10*3/uL (2.0-8.3); Neutrophils Percent Auto 76.4 % (45-73); Platelet Count 218 X10*3/uL (160-400); Red Blood Count 3.74 X10*6/uL (4.20-5.50); Red Cell Distribution Width 14.6 % (11.0-16.0); White Blood Count 11.1 X10*3/uL (4.8-10.8)
[2023-02-23 06:52] LABS: Anion Gap 11 (12-20); Blood Urea Nitrogen 8 mg/dL (9-16); Calcium 8.9 mg/dL (8.4-10.2); Carbon Dioxide 27 mmol/L (22-29); Chloride 103 mmol/L (96-108); Creatinine Clr Calc Pharmacy 120.9; Estimated Glomerular Filt Rate > 60; Glucose Random 80 mg/dL (60-115); Potassium 3.8 mmol/L (3.3-5.1); Sodium 137 mmol/L (135-145)
--- NOTE | 2023-02-23 07:24 | PM.PNGS ---
Subjective Subjective Date of Service: 02/23/23 Patient reports: no new complaints and tolerating liquids well Interval history: The patient reports minimal nausea and no vomiting. She is tolerating bariatric phase 1 has been out of bed to the toilet to void her bladder and denies any chest pain, difficulty breathing or shortness of breath. We discussed the intraoperative findings of the mesh at her GE junction likely due to her hiatal hernia repair and the possibility that this may cause ongoing dysphagia. Plan to follow-up with her PCP in a few months it and request a referral to a tertiary care center was again reviewed. Physical Exam Vital Signs: Vital Signs: Last Vital Signs Temp 97.2 F 02/23/23 03:36 Pulse 82 02/23/23 03:36 Resp 16 02/23/23 03:36 BP 109/57 L 02/23/23 03:36 Pulse Ox 99 02/23/23 03:36 O2 Del Method Room Air 02/23/23 03:36 O2 Flow Rate 2 02/22/23 15:00 BMI result Body Mass Index 33.8 On exam she is nontoxic and in good spirits She is having no respiratory difficulty or distress Appropriate abdominal tenderness is noted in the binder is intact. Objective Data Active Medications Albuterol Sulfate (Albuterol Sulfate (0.083%) 2.5 Mg/3 Ml Vial.Neb) 2.5 mg INHALE ONCE PRN PRN Reason: Shortness of Breath/Wheezing Albuterol Sulfate (Albuterol Sulfate 90 Mcg 8 Gm Inhaler) 2 puff INHALE Q6H PRN PRN Reason: Wheezing Amitriptyline HCl (Amitriptyline Hcl 50 Mg Tablet) 150 mg PO BEDTIME [facility] Last Admin: 02/22/23 20:10 Dose: 150 mg Documented By: SCOTT Famotidine (Famotidine/Pf 20 Mg/2 Ml Vial) 20 mg IVPUSH BID [facility] Last Admin: 02/22/23 20:10 Dose: 20 mg Documented By: SCOTT Fentanyl (Fentanyl Citrate/Pf 100 Mcg/2 Ml Vial) 50 mcg IVPUSH Q5M PRN; Protocol PRN Reason: Pain, Severe (Pain Scale 7-10) Hydromorphone HCl (Hydromorphone Hcl 0.5 Mg/0.5 Ml Syringe) 0.25 mg IVPUSH Q2H PRN; Protocol PRN Reason: Pain, Moderate(Pain Scale 4-6) Hydromorphone HCl (Hydromorphone Hcl 0.5 Mg/0.5 Ml Syringe) 0.5 mg IVPUSH Q5M PRN; Protocol PRN Reason: Pain, Severe (Pain Scale 7-10) Lactated Ringer's (Lr) 1,000 mls @ 150 mls/hr IVCONT .Q6H40M [facility] Last Admin: 02/23/23 04:32 Dose: 150 mls/hr Documented By: SCOTT Acetaminophen (Ofirmev) 1,000 mg in 100 mls @ 400 mls/hr IV Q6H [facility] Last Infusion: 02/23/23 02:14 Dose: Infused Documented By: SCOTT Omeprazole (Omeprazole 20 Mg Capsule.Dr) 20 mg PO DAILY [facility] Ondansetron HCl (Ondansetron Hcl 4 Mg/2 Ml Vial) 4 mg IVPUSH Q8H PRN PRN Reason: Nausea Ondansetron HCl (Ondansetron Hcl 4 Mg/2 Ml Vial) 4 mg IVPUSH ONCE PRN PRN Reason: Nausea and Vomiting Ondansetron HCl (Ondansetron Odt 4 Mg Tab.Rapdis) 4 mg TRANSLINGU Q6H PRN PRN Reason: nausea and vomiting Oxycodone HCl (Oxycodone Hcl Immed Release 5 Mg Tablet) 5 mg PO Q4H PRN PRN Reason: Pain, Moderate(Pain Scale 4-6) Propranolol HCl (Propranolol Hcl 40 Mg Tablet) 80 mg PO BID [facility]; Protocol Last Admin: 02/22/23 20:16 Dose: Not Given Documented By: SCOTT Non-Admin Reason: Patient Refused Sodium Chloride (0.9 % Sodium Chloride Flush 3 Ml Syringe) 3 ml IVFLUSH QSHIFT [facility] Last Admin: 02/22/23 20:11 Dose: 3 ml Documented By: SCOTT Sucralfate (Sucralfate Oral Suspension 1 Gm/10 Ml Oral.Susp) 1 gm PO BID [facility] Last Admin: 02/22/23 20:10 Dose: 1 gm Documented By: SCOTT Labs 02/23/23 05:40 02/23/23 05:40 Labs: Laboratory Results - last 24 hr 02/22/23 02/23/23 14:05 05:40 MCV 85.0 MCH 27.3 MCHC 32.1 RDW 14.6 Plt Count 218 MPV 11.3 Immature Gran % (Auto) 0.3 Neut % (Auto) 76.4 H Lymph % (Auto) 15.7 L Nance % (Auto) 7.0 Eos % (Auto) 0.3 Baso % (Auto) 0.3 Lymph # (Auto) 1.7 Nance # (Auto) 0.8 Eos # (Auto) 0.0 Baso # (Auto) 0.0 Abs Immat Gran (auto) 0.03 Absolute Neuts (auto) 8.5 H Absolute Nucleated RBC 0.000 Nucleated RBC % (auto) 0.0 Anion Gap 11 L 11 L Estim Creat Clear Calc 107.9 120.9 Estimated GFR > 60 > 60 Random Glucose 123 H 80 Calcium 9.3 8.9 Procedures Date of Service Date of Service: 02/23/23 Progress Note: A&P Assessment and plan (1) History of removal of laparoscopic gastric banding device: Status: Acute (2) Dysphagia: Status: Acute (3) Abnormal abdominal ultrasound: Status: Acute (4) NAFLD (nonalcoholic fatty liver disease): Status: Acute (5) History of repair of hiatal hernia: Status: Acute Plan Advanced to bariatric phase 2 diet. Patient is stable for discharge. Written instructions regarding liquid protein shakes and diet were provided and her questions answered. Activity restrictions were also reviewed. Follow-up with me in clinic next week, sooner if there are questions or problems. Patient is again reminded about avoiding solid food for the next several weeks due to swelling after band removal. The risk of aspiration and pneumonia was candidly discussed and apparently understood. Patient will stay on liquid diet. Time Spent With Patient Time: Total time managing care of this patient today ____ minutes. Quality Stroke Does the patient have a stroke diagnosis?: No VTE Prior VTE?: No VTE Risk Level:: Surgical - moderate VTE Device Contraindication: N/A - Device Ordered VTE Drug Contraindication: Treatment Not Indicated
[2023-02-23 07:29] VITALS: BP 115/56; PULSE 79; RESP 18; TEMP 36.1; O2SAT 96
--- NOTE | 2023-02-23 07:29 | P.DS_ITS ---
DS: Providers Provider Date of Service: 02/23/23 Date of admission: 02/22/23 08:52 Primary care physician: Unknown Physician DS: Diagnosis Discharge Diagnosis (1) History of removal of laparoscopic gastric banding device: Status: Acute (2) Dysphagia: Status: Acute (3) Abnormal abdominal ultrasound: Status: Acute (4) NAFLD (nonalcoholic fatty liver disease): Status: Acute (5) History of repair of hiatal hernia: Status: Acute DS: Summary Hospital Course Hospital Course: See admitting H and P for full details. Briefly, this 52-year-old woman with a history of obesity underwent laparoscopic gastric band placement with a hiatal hernia repair and [place] in 2009. She has had ongoing dysphagia and weight gain as well as other complaints that may not be related to the band, but given her progressive dysphagia, she wished to have it removed. She was given the option of revision bariatric surgery but noted that she is not interested. Patient underwent laparoscopic lysis of adhesions and complete removal of her restrictive gastric band on 02/22/2023. Intraoperative upper endoscopy showed continued tightness at the GE junction in further dissection demonstrated a mesh of unknown type circumferentially on the GE junction likely as part of the patient's hiatal hernia repair. This could not safely be removed due to its dense adherence in the location. At the time of discharge, patient was tolerating a liquid diet and had no pain. Instructions regarding diet and activity reviewed. Overall condition at time of discharge is improved. Possible need to be evaluated at a tertiary care center if her symptoms persist was discussed and apparently understood. Time Attestation Discharge coordination time: Less than 30 minutes Quality: Safe Use of Opioids Does Pt have an Active Cancer Diagnosis on the Problem List?: No Quality: Stroke Does the patient have a stroke diagnosis?: No Physical Exam Vital Signs: Vital Signs: Last Vital Signs Temp 97.2 F 02/23/23 03:36 Pulse 82 02/23/23 03:36 Resp 16 02/23/23 03:36 BP 109/57 L 02/23/23 03:36 Pulse Ox 99 02/23/23 03:36 O2 Del Method Room Air 02/23/23 03:36 O2 Flow Rate 2 02/22/23 15:00 BMI result Body Mass Index 33.8 DS: Data Data Completed and Pending Pending studies at discharge: Pending at discharge 02/22/23 13:11 Surgical [PTH] Routine Labs on day of discharge: Laboratory Results - last 24 hr 02/22/23 02/23/23 14:05 05:40 WBC 11.1 H RBC 3.74 L Hgb 11.2 L 10.2 L Hct 35.5 L 31.8 L MCV 85.0 MCH 27.3 MCHC 32.1 RDW 14.6 Plt Count 218 MPV 11.3 Immature Gran % (Auto) 0.3 Neut % (Auto) 76.4 H Lymph % (Auto) 15.7 L Z[place]ala % (Auto) 7.0 Eos % (Auto) 0.3 Baso % (Auto) 0.3 Lymph # (Auto) 1.7 [place] # (Auto) 0.8 Eos # (Auto) 0.0 Baso # (Auto) 0.0 Abs Immat Gran (auto) 0.03 Absolute Neuts (auto) 8.5 H Absolute Nucleated RBC 0.000 Nucleated RBC % (auto) 0.0 Sodium 137 137 Potassium 4.4 3.8 Chloride 103 103 Carbon Dioxide 27 27 Anion Gap 11 L 11 L BUN 12 8 L Creatinine 0.65 0.58 Estim Creat Clear Calc 107.9 120.9 Estimated GFR > 60 > 60 Random Glucose 123 H 80 Calcium 9.3 8.9 Discharge Plan Discharge Anticipated Discharge Date/Time: 02/23/23 07:28 Patient Disposition: Home, Self-Care Discharge Diagnosis: dysphagia, s/p gastric band removal Referrals: Physician,Unknown J [Primary Care Provider] - 1 Week Moe Mahmood MD, LIEN DIAZ [Physician] - 1 Week Discharge Medications: Continued multivitamin Tablet 1 tab PO DAILY propranolol 80 mg Tablet 80 mg PO BID albuterol sulfate 90 mcg/actuation Hfa Aerosol Inhaler 2 puff INHALATION Q6H PRN (Reason: Wheezing) ondansetron HCl 4 mg tablet 4 mg PO Q6H PRN (Reason: nausea and vomiting) Qty: 20 0RF sucralfate 100 mg/mL suspension 10 ml PO BID 30 Days Qty: 600 2RF amitriptyline 150 mg tablet 150 mg PO BEDTIME sertraline 100 mg tablet 150 mg PO DAILY rimegepant 75 mg tablet,disintegrating 75 mg PO Q OTHER DAY PRN (Reason: Headache) cholecalciferol (vitamin D3) 25 mcg (1,000 unit) capsule 25 mcg PO DAILY omeprazole 20 mg tablet,delayed release (DR/EC) 20 mg PO DAILY [id number] [Butalbital Compound W/Codeine] [id number] mg capsule 1 cap PO Q6H PRN (Reason: Headache) Discharge Orders: Discharge Order (Routine); Ordered 02/23/23 Ordered By: Moe Mahmood Diet: Advance to usual diet Activity on Discharge: No heavy lifting Stand Alone Forms: Patient Portal Discharge page Activity Restrictions/Additional Instructions: Your gastric band was completely removed by Dr. Mahmood 02/22/23. Due to swelling, plan to stay on a liquid diet until your follow-up appointment. Plan of Treatment: No tub baths, sex or returning to work until discussed at first post op appointment. No exercise, alcohol, tobacco or illegal drug use. Continue to use incentive spirometer hourly while awake. Walk in home for 5- 10 minutes every 2 hours during the first week. Start phase 2 diet tomorrow morning. Add protein shakes, 3 shakes per day to goal of 100 grams of protein/day. Stay on liquid diet/protein shakes until your follow-up appointment with Dr. Mahmood. You have an unknown mesh from your hiatal hernia repair which is stuck to your lower esophagus, stomach & diaphram which may cause ongoing swallowing problems due to scar tissue. If your swallowing troubles persist after 2 months of healing, you will need to ask your PCP for a referral to a teaching hospital/tertiary care center given the complexity of treatment & possible specialized surgery. Records have been sent to your PCP, but please call Dr. Mahmood's office if he needs additional notes/reports. Trying to maintain or lose weight will help your overall health. 1. Please call your doctor or come back to the emergency room should any new symptoms arise. 2. You will receive a courtesy call from [facility] 24-48 hours after discharge. 3. Activity: abstain from alcohol, practice limited stair climbing, no bending, no driving, no exercise, no illicit substances, no lifting, no sex, no tub bath, no work. 4. Diet: continue as discussed with bariatric team.. 5. Dressing Change/Wound Care: Do not change or remove surgical dressings unless they are wet or soiled. 6. Call your doctor if: - Your temperature exceeds 101.5 F - You experience excessive pain or swelling - You have an unexpected reaction to medication - You have excessive bleeding - You experience continued vomiting/nausea - Your incision begins to separate - Your incision shows signs of infection such as increased redness, swelling, excessive pain, heat, or drainage (light blood or clear fluid is normal) 7. General instructions: No lifting greater than 5 lbs for the next 4 weeks[address] driving within 24 hours of taking narcotic pain medications. If you do not move your bowels in the next 2 days, please take milk of magnesia over the counter. Please follow the post op diet and do not advance your diet until you are seen in the office in about 2 weeks. Please walk around your home every hour or two to prevent blood clots from forming in your legs. You do not need to wake from sleeping to walk. Please sleep in a bed or couch to prevent kinking at the hips and knees. Please take your incentive spirometer (your lung political organizer) home with you and use it for the next few days to prevent pneumonias. You may shower, no hot tubs, baths or swimming pools. Please call the office with any questions or concerns such as increasing abdominal pain, fever, chills, shortness of breath, chest pain, leg pain or swelling, or redness or drainage from your incisions. Do not hesitate to contact the office with any questions at . The patient's medical history has been reviewed and they are considered low risk for post op DVT and therefore DVT prophylaxis is not considered necessary. Travel after surgery was reviewed. The patient has not disclosed any travel plans during the first 30 days after surgery and they have been advised that within the first 30 days after surgery any bus, plane, train or car travel over 2 hours in duration is contraindicated due to the possibility of developing blood clots from immobility. Any travel, needs to include periods of ambulation of 10 minutes in duration every 2 hours. The patient was instructed to discuss any plans for travel during this period with their bariatric surgeon. Care Plan Goals: Continue protein shakes & multivitamin; activity restrictions as outlined Health Concerns: obesity Plan of Treatment: Follow diet and activity restrictions as outlined. You have an unknown mesh from your hiatal hernia repair which is stuck to your lower esophagus, stomach & diaphram which may cause ongoing swallowing problems due to scar tissue. If your swallowing troubles persist after 2 months of healing, you will need to ask your PCP for a referral to a teaching hospital/tertiary care center given the complexity of treatment & possible specialized surgery. Records have been sent to your PCP, but please call Dr. Mahmood's office if he needs additional notes/reports. Assessment: s/p gastric band removal for dysphagia
[2023-02-23] MEDS: Omeprazole 20 MG CAPSULE.DR PO (07:48)
[2023-02-23] MEDS: Famotidine/PF 20 MG/2 ML VIAL IVPUSH (07:48)
[2023-02-23] MEDS: Propranolol HCL 40 MG TABLET 80 MG PO (07:48)
[2023-02-23] MEDS: Sucralfate Oral Suspension 1 GM/10 ML ORAL.SUSP PO (07:49)
--- NOTE | 2023-02-23 11:10 | MHC.CM.PN ---
Addendum entered by Iman Carrizales 02/23/23 11:12: CM RETURNED TO DISCUSS A HCP WITH PT PT HAS ALREADY LEFT HCP PAPERWORK WILL BE MAILED TO HER Original Note: PT REPORTS SHE LIVES WITH HER DAUGHTER AND IS INDEPENDENT WITH CARE SHE DENIES USE OF DME OR HOME SERVICES PT DOES NOT HAVE A HCP, SHE INDICATED SHE MAY WANT TO COMPLETE ONE PER DISCUSSION, CM WILL RETURN AFTER ROUNDS TO FURTHER DISCUSS HCP PCP: TRISH LOPEZ PT WILL DC HOME TODAY SHE HAS INDICATED SHE WILL NOT HAVE A RIDE UNTIL 1200 HOURS
--- NOTE | 2023-02-23 13:55 | HO.POSTANES ---
Post Anesthesia Evaluation Post Anesthesia Evaluation Date of Service: 02/23/23 Vital Signs: Vital Signs Temp Pulse Resp BP Pulse Ox O2 Del Method 02/23/23 07:29 97.0 F 79 18 115/56 L 96 Room Air 02/23/23 03:36 97.2 F 82 16 109/57 L 99 Room Air Anesthesia: General Endotracheal-GETA Mental Status: Awake Pain Control: Satisfactory Nausea/Vomiting: None Hydration: Adequate Anesthesia-Related Issues: No Anes. Related Issues
== END 2023-02-23 10:20 | disposition home or self-care (01) | DRG 222 ==
LOC: HO.SSSA 08:57 → HO.S3 14:29
PROVIDERS: Admitting Provider Surgery; PCP Family Medicine; Visit Provider Surgery
PROC: 0DP64CZ Removal of Extraluminal Device from Stomach, Percutaneous Endoscopic Approach (ICD-10-PCS; principal; 2023-02-22 10:30)
DX: K95.09 Other complications of gastric band procedure (principal); T83.728A Exposure of other implanted mesh into organ or tissue, initial encounter; K76.0 Fatty (change of) liver, not elsewhere classified; R13.10 Dysphagia, unspecified; K66.0 Peritoneal adhesions (postprocedural) (postinfection); Z79.899 Other long term (current) drug therapy
CPT/HCPCS: 36415; 80048; 85014; 85018; 85025; 86850; 86900; 86901; 88300; 88302; C9145; J0131; J0690; J1100; J2250; J2405; J2550; J2704; J3010; J7120

== ENCOUNTER → 2023-02-22 08:52 | Outpatient (BNV) | payer OTHER, SELFPAY | PROVIDERS: Admitting Provider Surgery; Visit Provider Surgery | DX: Z98.84 Bariatric surgery status (principal); R13.10 Dysphagia, unspecified; R93.5 Abnormal findings on diagnostic imaging of other abdominal regions, including retroperitoneum; K76.0 Fatty (change of) liver, not elsewhere classified; Z98.890 Other specified postprocedural states; Z87.19 Personal history of other diseases of the digestive system | CPT/HCPCS: 43774; 99024 ==

== ENCOUNTER 2023-02-28 12:43 | Outpatient (AMB) | payer OTHER, SELFPAY ==
--- NOTE | 2023-02-28 12:55 | A.OFFVIS_ITS ---
Intake VS Expanded 02/28/23 13:00 BP 121/60 Blood Pressure Location Rt brachial Blood Pressure Position Sitting Pulse 79 Pulse Source Pulse Oximeter Temp 96.7 F L Temperature Source Tympanic Pulse Oximetry 99 Oxygen Delivery Method Room Air Intake Visit Reasons: (OV) s/p Lap Band Removal 02/22/23 Allergies acetaminophen [From Vicodin] Allergy (Mild, Verified 02/28/23 13:01) RASH adhesive tape Allergy (Mild, Verified 02/28/23 13:01) Rash hydrocodone [From Vicodin] Allergy (Mild, Verified 02/28/23 13:01) RASH oxycodone [From Percocet] Allergy (Mild, Verified 02/28/23 13:01) RASH propoxyphene [From Darvocet-N] Allergy (Mild, Verified 02/28/23 13:01) RASH HPI HPI Comments History of Present Illness Details The patient comes in for postoperative evaluation after complete removal of restrictive gastric band and port removal 02/22/23. The pt had previously had it placed in 2009 in [place], [place] and also reports she was told a hiatal hernia repair had been done at the same time. Unfortunately, operative report was not available preoperatively. Due to progressive dysphagia, the patient underwent removal of the band with upper endoscopy on 02/22/2023. Preoperatively, the patient had some symptoms which may have represented irritable bowel syndrome and evaluation of these preoperatively was recommended, but the patient wanted to proceed with band removal. After the band was laparoscopically removed, upper endoscopy was perfo rmed, the patient had GE junction tightness following removal of the gastric band and further dissection demonstrated an unknown mesh densely adherent to the GE junction and right hilaria of the diaphragm. This was left in place. Since discharge, the patient reports she has had ongoing GERD but it is no worse than her prior GERD. She is staying on the liquid diet is recommended and has not tried any soft food yet. She denies any chest pain, difficulty breathing, shortness of breath or interval change to her health issues. We again reviewed the intraoperative findings of a mesh of unknown type densely adherent to her GE junction and right hemidiaphragm that was left in place. The fact that she may have ongoing dysphagia that will need to be evaluated by Gastroenterology for consideration of balloon dilation was again discussed. [facility] Medical History Cyst (solitary) of breast Hiatal hernia Anxiety Empty sella syndrome Asthma History of headache Tachycardia Surgical History (Updated 02/27/23 @ 13:34 by Adrianne Reed ELECT[employer]ICAL AND [employer]LECT[employer]IC [employer]) History of removal of laparoscopic gastric banding device History of kidney surgery Hx of cholecystectomy Hx of breast reduction, elective Hx of tonsillectomy Hx of adenoidectomy H/O laparoscopic adjustable gastric banding Family History Paternal Grandfather Lung cancer Maternal Grandmother Liver cancer Pancreatic cancer Colon cancer Social History Household Members: Family Housing: House Are you a primary overnight caregiver to a significant other at home: Yes Do you presently have visiting nurse or other home services: No Alcohol intake: never Patient Tobacco Use Status: Never used Tobacco service: No Review of Systems Const All systems reviewed & are unremarkable except as noted in HPI and below Reports as per HPI Physical Exam On exam, the patient is nontoxic She is having no respiratory distress She is anicteric Patient's abdominal dressings were taken down in her Steri-Strips are in place. All of her incisions are healing well with no evidence of cellulitis, hematoma or hernia. Results Reviewed Results Reviewed: Pathology report demonstrating port, filling tube in gastric band, gross only is noted Assessment & Plan Assessment & Plan (1) History of removal of laparoscopic gastric banding device: Comment: 02/22/23 Dr Mahmood Laparoscopic removal of gastric band including port, laparoscopic lysis of adhesions for 35 minutes, esophagogastroscopy intraoperatively Code(s): Z98.84 - Bariatric surgery status (2) History of repair of hiatal hernia: Code(s): Z98.890 - Other specified postprocedural states; Z87.19 - Personal history of other diseases of the digestive system (3) Dysphagia: Code(s): R13.10 - Dysphagia, unspecified (4) Abnormal abdominal ultrasound: Code(s): R93.5 - Abnormal findings on diagnostic imaging of other abdominal regions, including retroperitoneum (5) NAFLD (nonalcoholic fatty liver disease): Code(s): K76.0 - Fatty (change of) liver, not elsewhere classified (6) Empty sella: Code(s): E23.6 - Other disorders of pituitary gland Plan Instructions regarding her meal plan were reviewed. She denies any dysphagia with liquids and is hydrating well and taking protein shakes. I have encouraged the patient to stay on a liquid diet for the next week and then gradually introduce soft foods. She is specifically advised to avoid vegetables, bread, meats for the next week. She was advised that the mesh and swelling may resolve and her symptoms improve, however, if she has ongoing dysphagia with liquids or soft foods, she is encouraged to contact her PCP and request referral to Gastroenterology since balloon dilation may be required. The possible need for referral to a tertiary care center if she has ongoing dysphagia was also discussed. Activity restrictions including not lifting more than 20 lb for the next month were reviewed. Patient declined a work note due to disability. Instructions to contact the office with any questions were reviewed. In my absence, I will be covered by the PAs and Dr. Berrios. Coding Level of Care Code Global (53320) Diagnoses History of removal of laparoscopic gastric banding device Z98.84 History of repair of hiatal hernia Z98.890; Z87.19 Dysphagia R13.10 Abnormal abdominal ultrasound R93.5 NAFLD (nonalcoholic fatty liver disease) K76.0 Empty sella E23.6
[2023-02-28 13:00] VITALS: BP 121/60; PULSE 79; TEMP 35.9; O2SAT 99
== END 2023-02-28 13:12 | disposition home or self-care (01) ==
PROVIDERS: PCP Family Medicine; Visit Provider Surgery
DX: Z98.84 Bariatric surgery status (principal); Z98.890 Other specified postprocedural states; Z87.19 Personal history of other diseases of the digestive system; R13.10 Dysphagia, unspecified; R93.5 Abnormal findings on diagnostic imaging of other abdominal regions, including retroperitoneum; K76.0 Fatty (change of) liver, not elsewhere classified; E23.6 Other disorders of pituitary gland
CPT/HCPCS: 99024

== ENCOUNTER → 2023-02-28 12:43 | Outpatient (BNVA) | payer OTHER, SELFPAY | PROVIDERS: PCP Family Medicine; Visit Provider Surgery | DX: Z47.2 Encounter for removal of internal fixation device (principal); R93.5 Abnormal findings on diagnostic imaging of other abdominal regions, including retroperitoneum; E23.6 Other disorders of pituitary gland; R13.10 Dysphagia, unspecified; K76.0 Fatty (change of) liver, not elsewhere classified; Z98.84 Bariatric surgery status; Z98.890 Other specified postprocedural states; Z87.19 Personal history of other diseases of the digestive system | CPT/HCPCS: 99212 ==